=== PATIENT | male | born 1990 | race Caucasian/White ===

== ENCOUNTER 2017-06-22 18:24 | Emergency (ER) | payer OTHER ==
[~2017-06-22] VITALS: Ht 177.8 cm; Wt 29.5 kg
[2017-06-22 19:45] VITALS: BP 127/70
== END 2017-06-22 20:40 | disposition home or self-care (01) ==
LOC: ER 18:24 → EDBD 18:24 → ER 20:40
DX: G56.31 Lesion of radial nerve, right upper limb (principal)
CPT/HCPCS: 73110

== ENCOUNTER 2019-10-10 12:23 | Emergency (ER) | payer OTHER ==
[~2019-10-10] VITALS: Ht 177.8 cm; Wt 75.7 kg
[2019-10-10 12:51] VITALS: BP 133/82
== END 2019-10-10 14:06 | disposition home or self-care (01) ==
LOC: ER 12:23
DX: B37.2 Candidiasis of skin and nail (principal); B34.9 Viral infection, unspecified